=== PATIENT | male | born 1960 ===

== ENCOUNTER 2017-06-07 14:00 | Outpatient (CLI) | payer OTHER ==
[~2017-06-07 14:00] MED LIST: LIPITOR20 MG; LIPITOR20 MG PO
== END 2017-06-07 14:05 | disposition home or self-care (01) ==
LOC: LAB 14:00
DX: D64.89 Other specified anemias (principal); Z00.00 Encounter for general adult medical examination without abnormal findings

== ENCOUNTER 2018-03-29 07:49 | Outpatient (CLI) | payer OTHER | END 2018-03-29 15:00 | disposition home or self-care (01) | LOC: LAB 07:49 | DX: K52.89 Other specified noninfective gastroenteritis and colitis (principal) ==

== ENCOUNTER 2018-05-17 14:30 | Outpatient (CLI) | payer OTHER | END 2018-05-17 14:33 | disposition home or self-care (01) | LOC: LAB 14:30 | DX: Z86.010 Personal history of colon polyps (principal); D50.8 Other iron deficiency anemias ==